=== PATIENT | female | born 1930 | race Caucasian/White ===

== ENCOUNTER 2021-04-06 03:41 | Emergency (ER) | payer OTHER ==
[~2021-04-06] VITALS: Ht 157.5 cm; Wt 52.2 kg
--- NOTE | 2021-04-06 03:47 | NUR ---
AME FROM HOME C/O RIB PAIN X SEVERAL WEEKS, +NAUSEA, NO VOMITING WELL "MEDICINAL TASTE IN MOUTH" WHEN SHE WOKE UP. DENIES C/P OR SOB BREATHING IS EVEN AND UNLABORED. CHANGED INTO A GOWN AND PLACED ON THE MONITOR AND ALL V/S STABLE.
[2021-04-06] MEDS ORDERED: ONDANSETRON HCL/PF 4 MG/2 ML VIAL ONE ×2 (04:22→05:37)
[2021-04-06] MEDS ORDERED: IV NS 0.9% 500 ML BAG IV ONE (04:30)
[2021-04-06] MEDS ORDERED: ONDANSETRON HCL/PF 4 MG/2 ML VIAL IVP ONE (04:30)
[2021-04-06 04:44] LABS: BASOPHILS # (AUTO) 0.1 K/uL (0.0-0.2); BASOPHILS % (AUTO) 0.7 % (0.0-2.0); EOSINOPHILS % (AUTO) 0.1 % (0.0-6.0); HEMATOCRIT 42 % (33-45); LYMPHOCYTES # (AUTO) 0.4 K/uL (0.8-4.8); LYMPHOCYTES % (AUTO) 5.4 % (20.0-44.0); MEAN CORPUSCULAR HGB CONC 34 g/dl (31.0-36.0); MEAN CORPUSCULAR VOLUME 92 fL (82-100); MONOCYTES # (AUTO) 0.2 K/uL (0.1-1.30); MONOCYTES % (AUTO) 2.6 % (2.0-12.0); NEUTROPHILS # (AUTO) 7.3 K/uL (1.8-8.9); NEUTROPHILS % (AUTO) 91.2 % (43.0-81.0); PLATELET COUNT (AUTO) 213 K/uL (150-450); RED BLOOD CELL COUNT(AUTO) 4.55 MIL/uL (4.0-5.2)
[2021-04-06 05:10] LABS: CARBON DIOXIDE 26 mmol/L (21-32); CHLORIDE 102 mmol/L (98-107); GLUCOSE 161 mg/dL (74-106); POTASSIUM 4.1 mmol/L (3.5-5.1); SODIUM SERUM 137 mmol/L (136-145); UREA NITROGEN, BLOOD 25 mg/dL (7-18)
[2021-04-06 05:22] LABS: ALANINE AMINOTRANSFERASE 17 U/L (12-78); ALBUMIN 3.8 g/dL (3.4-5.0); ALKALINE PHOSPHATASE 52 U/L (46-116); ASPARTATE AMINOTRANSFERASE 20 U/L (15-37); BILIRUBIN,DIRECT 0.1 mg/dL (0.0-0.2); BILIRUBIN,TOTAL 0.5 mg/dL (0.2-1.0); TOTAL PROTEIN, SERUM 7.9 g/dL (6.4-8.2)
--- NOTE | 2021-04-06 05:28 | NUR ---
[facility] PANEL PAGED
[2021-04-06] MEDS ORDERED: ONDANSETRON HCL/PF 4 MG/2 ML VIAL IV ONE (05:30)
[2021-04-06] MEDS ORDERED: KETOROLAC TROMETHAMINE INJ 30 MG/ML VIAL IV ONE (05:30)
[2021-04-06] MEDS ORDERED: ASPIRIN 325 MG TABLET ONE (05:37)
[2021-04-06] MEDS ORDERED: KETOROLAC TROMETHAMINE INJ 30 MG/ML VIAL ONE (05:37)
--- NOTE | 2021-04-06 05:59 | NUR ---
[facility] PT IS NEXT ON THE LIST TO BE CALLED
[2021-04-06] MEDS ORDERED: ASPIRIN 325 MG TABLET PO ONE (06:00)
--- NOTE | 2021-04-06 06:43 | NUR ---
[facility] PICKUP [id number]
--- NOTE | 2021-04-06 06:43 | NUR ---
0800 eta for pickup
--- NOTE | 2021-04-06 07:54 | NUR ---
AMBULANCE ARRIVED TO TRANSFER PT HOME.
--- NOTE | 2021-04-06 07:54 | NUR ---
IV removed. Catheter intact and site benign. Pressure and 4x4 applied to site. No bleeding noted.Patient discharged to home in stable condition. Written and verbal after care instructions given. Patient verbalizes understanding of instruction.
[2021-04-06 07:55] VITALS: BP 141/73
--- NOTE | 2021-04-06 07:55 | NUR ---
REPORT GIVEN TO EMS FOR PT DISCHARGED BACK HOME.
== END 2021-04-06 08:02 | disposition home or self-care (01) ==
LOC: ER 03:42
DX: R07.89 Other chest pain (principal)
CPT/HCPCS: 36415; 71045; 80048; 80076; 83880; 84484; 85025; 85730; 93005; 96374; 96375; 96376; 99285; J1885; J2405 ×2; J7040